=== PATIENT | male | born 1975 | race Caucasian/White ===

== ENCOUNTER → 2019-11-15 | Outpatient (CLI) | payer OTHER ==
[~2019-11-15] MED LIST: ATIVAN0.5 M1 PO; BUPROPION; BUSPIRONE HCL5 MG PO; EFFEXOR; FISHOIL; KLONOPIN; LIPITOR 20 MG T20 M1 PO; LODINE400 M1 PO; MEDROLDOSEPACK PO; MOBIC; NAPROSYN500 MG PO; NORCO 5-325 TA1 EACH PO; OMEPRAZOLE 20 M20 M1 PO; SEROQUEL 25 MG25 MG PO; SILDENAFIL20 MG PO; TRAMADOL 50 MG50 MG PO; ULTRACET
== END ==
LOC: M.PC 11-08 10:00
PROVIDERS: ATTEND Physical Medicine & Rehabilitation
DX: M47.816 Spondylosis without myelopathy or radiculopathy, lumbar region (principal); M51.36 Other intervertebral disc degeneration, lumbar region; M48.061 Spinal stenosis, lumbar region without neurogenic claudication

== ENCOUNTER → 2020-01-10 | Outpatient (CLI) | payer OTHER | LOC: M.PC 09:56 | PROVIDERS: ATTEND Physical Medicine & Rehabilitation | DX: M47.816 Spondylosis without myelopathy or radiculopathy, lumbar region (principal); M79.651 Pain in right thigh; M79.652 Pain in left thigh; M51.36 Other intervertebral disc degeneration, lumbar region; M48.061 Spinal stenosis, lumbar region without neurogenic claudication; Z79.899 Other long term (current) drug therapy ==